=== PATIENT | female | born 1965 ===

== ENCOUNTER 2017-07-20 10:13 | Inpatient (IN) | payer OTHER ==
[~2017-07-20] VITALS: Ht 167.6 cm; Wt 72.6 kg
[~2017-07-20 10:13] MED LIST: GILTUSS TR TAB1 EACH PO; ZITHROMAX500 MG PO
== END 2017-07-27 15:14 | disposition designated cancer center or children's hospital (05) | DRG 292 ==
LOC: ER 10:13 → ICU-2 07-21 11:47
PROC: 3E0F7GC Introduction of Other Therapeutic Substance into Respiratory Tract, Via Natural or Artificial Opening (ICD-10-PCS; principal; 2017-07-21)
PROC: B246ZZZ Ultrasonography of Right and Left Heart (ICD-10-PCS; 2017-07-21)
DX: I50.23 Acute on chronic systolic (congestive) heart failure (principal); J90 Pleural effusion, not elsewhere classified; I51.7 Cardiomegaly; L89.610 Pressure ulcer of right heel, unstageable